=== PATIENT | male | born 1980 | race Caucasian/White ===

== ENCOUNTER 2018-08-09 21:51 | Emergency (ER) | payer SELFPAY ==
[~2018-08-09] VITALS: Ht 172.7 cm; Wt 86.0 kg
[2018-08-09] MEDS ORDERED: PEPCID20 MG PO (22:23)
[2018-08-09] MEDS ORDERED: AMOXICILLIN875 MG PO (22:23)
[2018-08-09] MEDS ORDERED: BENADRYL 50MG C50 MG PO (22:23)
[2018-08-09] MEDS ORDERED: MEDDOSEPAK PO (22:23)
[2018-08-09 23:10] VITALS: BP 132/77
== END 2018-08-09 23:10 | disposition home or self-care (01) | DRG 607 ==
LOC: ED 21:51
DX: L25.3 Unspecified contact dermatitis due to other chemical products (principal); L03.116 Cellulitis of left lower limb